=== PATIENT | female | born 1940 | race Caucasian/White ===

== ENCOUNTER 2021-08-04 11:24 | Inpatient (IN) | payer OTHER ==
[2021-08-04] MEDS ORDERED: SODIUM CHLORIDE 2,803 ML IV ONE (11:37)
[2021-08-04] MEDS ORDERED: PIPERACILLIN/TAZOB 3.375 GM 3.375 GM in DEXTROSE 5%-WATER - 50 ML IVPB ONE (11:39)
[2021-08-04] MEDS ORDERED: VANCOMYCIN 1 GM in D5W (PRE-DOCKED) 1,000 MG/250 ML IVPB ONE (11:39)
[2021-08-04] MEDS ORDERED: ACETAMINOPHEN 1000 MG/100 ML BAG IVPB ONE (11:40)
[2021-08-04 12:14] LABS: AMORP URATES 1+ /hpf (NONE SEEN); EPITHELIAL CELLS MODERATE /hpf
[2021-08-04] MEDS ORDERED: PIPERACILLIN/TAZOBACTAM 3.375 GM VIAL IVPB ONE ×2 (12:39→21:52)
[2021-08-04] MEDS ORDERED: ACETAMINOPHEN INJECTION 100 ML IVPB ONE (12:39)
[2021-08-04] MEDS ORDERED: VANCOMYCIN 1,000 MG VIAL (RESTRICTED TO ID ONLY) ONE (12:40)
[2021-08-04 13:00] LABS: ALBUMIN 3.2 g/dl (3.4-5.0); BILIRUBIN,TOTAL 0.5 mg/dl (0.2-1); CALCIUM 8.9 mg/dl (8.5-10); CREATININE 0.7 mg/dl (0.55-1.3); TOT PROT 6.2 g/dl (6.4-8.2)
[2021-08-04 13:13] LABS: ACTIVATED PTT 28.1 SECONDS (25.2-36.5); INR 1.15 (0.83-1.09); PROTHROMBIN TIME (PATIENT) 13.2 SEC (9.7-13.0)
[2021-08-04] MEDS ORDERED: KCL 10 MEQ IVPB 10 MEQ/100 ML INFUS.BAG IVPB SCH (13:45)
[2021-08-04] MEDS ORDERED: GABAPENTIN 300 MG CAPSULE PO SCH (14:00)
[2021-08-04] MEDS ORDERED: POTASSIUM CHLORIDE TABS 20 MEQ TABLET.ER (FP) PO ONE ×2 (14:20→14:23)
[2021-08-04] MEDS ORDERED: GABAPENTIN 300 MG CAPSULE ONE (14:24)
[2021-08-04 15:54] LABS: VENOUS BASE EXCESS 2.9 mmol/L (-2-2); VENOUS PCO2 40.9 mmHg (38-52); VENOUS PH 7.441 (7.310-7.410)
[2021-08-04 15:55] LABS: BASO % 0.1 % (0-2.0); HEMATOCRIT 34.8 % (32.4-45.2); HEMOGLOBIN 11.4 GM/dL (10.7-15.3); LYMPH % 3.1 % (8-40); MCH 30.9 pg (25.7-33.7); MCHC 32.9 g/dl (32.0-36.0); MEAN CELL VOLUME 93.9 fl (80-96); NEUT % 94.8 % (42.8-82.8); PLATELET COUNT 168 10^3/uL (134-434); RDW 15.2 % (11.6-15.6); WHITE BLOOD COUNT 11.9 K/mm3 (4.0-10.0)
[2021-08-04 17:15] LABS: ANISOCYTOSIS 1+
[2021-08-04] MEDS ORDERED: HEPARIN NA (PORCINE) 5,000 UNITS/ML 1ML VIAL SQ SCH (18:00)
[2021-08-04 20:22] VITALS: BMI 34.2
[2021-08-04] MEDS: SODIUM CHLORIDE 1,000 ML IV SCH (20:27)
[2021-08-04] MEDS ORDERED: DEXTROSE 5%-WATER - 50 ML IVPB ONE (21:52)
[2021-08-04] MEDS: APIXABAN 5 MG TABLET PO SCH (21:53)
[2021-08-04] MEDS: PIPERACILLIN/TAZOB 3.375 GM 3.375 GM in DEXTROSE 5%-WATER - 50 ML IVPB SCH (21:54)
[2021-08-04] MEDS: ACETAMINOPHEN 325 MG TABLET (FP) PO PRN (23:29)
[2021-08-05] MEDS: GABAPENTIN 300 MG CAPSULE PO SCH ×7 (01:00→21:05)
[2021-08-05] MEDS ORDERED: GABAPENTIN 300 MG CAPSULE ONE (01:10)
[2021-08-05] MEDS ORDERED: MELATONIN 1 MG TABLET ONE (01:10)
[2021-08-05] MEDS: MELATONIN 1 MG TABLET PO ONE (01:30)
[2021-08-05] MEDS ORDERED: PIPERACILLIN/TAZOBACTAM 3.375 GM VIAL IVPB ONE ×4 (04:31→17:36)
[2021-08-05] MEDS ORDERED: DEXTROSE 5%-WATER - 50 ML IVPB ONE ×4 (04:31→17:36)
[2021-08-05] MEDS: PIPERACILLIN/TAZOB 3.375 GM 3.375 GM in DEXTROSE 5%-WATER - 50 ML IVPB SCH ×5 (05:08→18:41)
[2021-08-05] MEDS: ACETAMINOPHEN 325 MG TABLET (FP) PO PRN ×2 (08:00→14:22)
[2021-08-05] MEDS ORDERED: PATIENT'S OWN MEDICATION (NON-FORMULARY) (Mirabegron [Myrbetriq] 50 MG Tab.Er.24h) PO SCH (10:00)
[2021-08-05] MEDS: APIXABAN 5 MG TABLET PO SCH (10:22)
[2021-08-05 10:26] LABS: ALBUMIN 2.4 g/dl (3.4-5.0); BILIRUBIN,TOTAL 0.4 mg/dl (0.2-1); CALCIUM 8.2 mg/dl (8.5-10); CREATININE 0.5 mg/dl (0.55-1.3); MAGNESIUM 1.6 mg/dL (1.8-2.4); TOT PROT 4.8 g/dl (6.4-8.2)
[2021-08-05] MEDS ORDERED: MAGNESIUM SULF 50% (8.12 MEQ/2 ML-1 GM VIAL) IVPB ONE (10:41)
[2021-08-05] MEDS ORDERED: MAGNESIUM SULFATE IN WATER 2 GM/50 ML IVPB IVPB ONE (11:00)
[2021-08-05 11:07] LABS: HEMATOCRIT 30.6 % (32.4-45.2); HEMOGLOBIN 10.4 GM/dL (10.7-15.3); MCH 31.8 pg (25.7-33.7); MEAN CELL VOLUME 93.4 fl (80-96); MEAN PLT VOLUME 7.9 fl (7.5-11.1); PLATELET COUNT 126 10^3/uL (134-434); RBC 3.28 M/mm3 (3.60-5.2); RDW 15.4 % (11.6-15.6); WHITE BLOOD COUNT 9.2 K/mm3 (4.0-10.0)
[2021-08-05] MEDS: POTASSIUM CHLORIDE TABS 20 MEQ TABLET.ER (FP) PO SCH ×2 (12:21→17:45)
[2021-08-05] MEDS ORDERED: PIPERACILLIN/TAZOB 3.375 GM 3.375 GM in DEXTROSE 5%-WATER - 50 ML IVPB SCH (14:00)
[2021-08-05 14:07] LABS: ANISOCYTOSIS 0; HELMET CELLS 0; HOWELL-JOLLY BODIES 0; MACROCYTOSIS 0; OVALOCYTE 0; ROULEAU 0; SICKELED CELLS 0; TARGET CELLS 0; TEAR DROP CELLS 0; TOXIC GRANULATION 0
[2021-08-05] MEDS: SODIUM CHLORIDE 1,000 ML IV SCH (17:00)
[2021-08-05] MEDS: HEPARIN NA (PORCINE) 5,000 UNITS/ML 1ML VIAL SQ SCH (21:05)
[2021-08-05] MEDS ORDERED: MELATONIN 5 MG TABLETS PO SCH (22:00)
[2021-08-06] MEDS: ACETAMINOPHEN 325 MG TABLET (FP) PO PRN (01:25)
[2021-08-06] MEDS: PIPERACILLIN/TAZOB 3.375 GM 3.375 GM in DEXTROSE 5%-WATER - 50 ML IVPB SCH ×3 (03:00→18:35)
[2021-08-06] MEDS ORDERED: DEXTROSE 5%-WATER - 50 ML IVPB ONE ×4 (03:20→18:29)
[2021-08-06] MEDS ORDERED: PIPERACILLIN/TAZOBACTAM 3.375 GM VIAL IVPB ONE ×4 (03:20→18:29)
[2021-08-06] MEDS: HEPARIN NA (PORCINE) 5,000 UNITS/ML 1ML VIAL SQ SCH ×3 (05:31→21:16)
[2021-08-06 07:59] LABS: ALBUMIN 2.4 g/dl (3.4-5.0); BILIRUBIN,TOTAL 0.5 mg/dl (0.2-1); CALCIUM 7.9 mg/dl (8.5-10); CREATININE 0.4 mg/dl (0.55-1.3); MAGNESIUM 1.7 mg/dL (1.8-2.4); TOT PROT 4.4 g/dl (6.4-8.2)
[2021-08-06] MEDS: GABAPENTIN 300 MG CAPSULE PO SCH ×4 (09:25→21:16)
[2021-08-06 09:56] LABS: BASO % 0.4 % (0-2.0); EOS % 0.5 % (0-4.5); HEMATOCRIT 28.6 % (32.4-45.2); HEMOGLOBIN 9.7 GM/dL (10.7-15.3); LYMPH % 17.1 % (8-40); MCH 31.6 pg (25.7-33.7); MCHC 33.7 g/dl (32.0-36.0); MEAN CELL VOLUME 93.6 fl (80-96); MEAN PLT VOLUME 8.2 fl (7.5-11.1); PLATELET COUNT 119 10^3/uL (134-434); RBC 3.06 M/mm3 (3.60-5.2); RDW 15.7 % (11.6-15.6); WHITE BLOOD COUNT 5.1 K/mm3 (4.0-10.0)
[2021-08-06] MEDS ORDERED: MAGNESIUM SULF 50% (8.12 MEQ/2 ML-1 GM VIAL) IVPB ONE (10:03)
[2021-08-06] MEDS ORDERED: POTASSIUM CHLORIDE TABS 20 MEQ TABLET.ER (FP) PO ONE (10:15)
[2021-08-06] MEDS ORDERED: MAGNESIUM SULFATE IN WATER 2 GM/50 ML IVPB IVPB ONE (10:15)
[2021-08-06] MEDS ORDERED: oxyCODONE HCL 5 MG TABLET PO ONE (13:13)
[2021-08-06] MEDS ORDERED: TEMAZEPAM 15 MG CAPSULE PO SCH (22:00)
[2021-08-07] MEDS ORDERED: PIPERACILLIN/TAZOBACTAM 3.375 GM VIAL IVPB ONE ×2 (00:51→09:41)
[2021-08-07] MEDS ORDERED: DEXTROSE 5%-WATER - 50 ML IVPB ONE ×2 (00:51→09:41)
[2021-08-07] MEDS: PIPERACILLIN/TAZOB 3.375 GM 3.375 GM in DEXTROSE 5%-WATER - 50 ML IVPB SCH ×2 (01:20→10:08)
[2021-08-07] MEDS: HEPARIN NA (PORCINE) 5,000 UNITS/ML 1ML VIAL SQ SCH (06:56)
[2021-08-07 09:28] LABS: BASO % 0.2 % (0-2.0); EOS % 1.1 % (0-4.5); HEMATOCRIT 32.7 % (32.4-45.2); LYMPH % 33.6 % (8-40); MCH 31.2 pg (25.7-33.7); MCHC 33.6 g/dl (32.0-36.0); MEAN CELL VOLUME 92.9 fl (80-96); MEAN PLT VOLUME 8.4 fl (7.5-11.1); MONO % 8.7 % (3.8-10.2); NEUT % 56.4 % (42.8-82.8); PLATELET COUNT 154 10^3/uL (134-434); RBC 3.52 M/mm3 (3.60-5.2); RDW 15.7 % (11.6-15.6); WHITE BLOOD COUNT 3.9 K/mm3 (4.0-10.0)
[2021-08-07 09:43] VITALS: BP 114/58; PULSE 77; TEMP 98.2
[2021-08-07] MEDS: GABAPENTIN 300 MG CAPSULE PO SCH (10:07)
[2021-08-07 10:22] LABS: ALBUMIN 2.8 g/dl (3.4-5.0); BILIRUBIN,TOTAL 0.4 mg/dl (0.2-1); CALCIUM 8.9 mg/dl (8.5-10); CREATININE 0.5 mg/dl (0.55-1.3); MAGNESIUM 1.8 mg/dL (1.8-2.4); TOT PROT 5.9 g/dl (6.4-8.2)
== END 2021-08-07 12:47 | disposition home or self-care (01) | DRG 603 ==
LOC: FER 11:24 → FM/S 13:49
PROVIDERS: ADMIT Internal Medicine; ATTEND Nurse Practitioner Family
DX: L03.115 Cellulitis of right lower limb (principal); M17.11 Unilateral primary osteoarthritis, right knee; M17.12 Unilateral primary osteoarthritis, left knee; N32.81 Overactive bladder; R50.9 Fever, unspecified; E87.6 Hypokalemia; E83.42 Hypomagnesemia; G62.9 Polyneuropathy, unspecified; Z86.718 Personal history of other venous thrombosis and embolism
CPT/HCPCS: 36415; 71045-TC-FY; 71275-TC; 74177-TC; 80053; 81003; 81015; 82550; 82553; 82803; 83605; 83735; 85025; 85610; 85730; 86850; 86900; 86901; 87040; 87045; 87046; 87086; 87324; 87449; 93005; 93970-TC; 97116-GP; 97162-GP; 99291; C9803-CS; J1644; Q9967; U0003; U0005